=== PATIENT | male | born 1980 | race Caucasian/White ===

== ENCOUNTER → 2018-03-03 | Outpatient (CLI) | payer BC | LOC: COL.RAD 14:30 | DX: H90.42 Sensorineural hearing loss, unilateral, left ear, with unrestricted hearing on the contralateral side (principal); G93.89 Other specified disorders of brain | CPT/HCPCS: A9585 ==

== ENCOUNTER → 2019-09-13 | Outpatient (CLI) | payer BC | LOC: COL.RAD 08:32 | DX: E23.7 Disorder of pituitary gland, unspecified (principal) | CPT/HCPCS: A9585 ==

== ENCOUNTER → 2021-10-20 | Outpatient (CLI) | payer BC | LOC: COL.RAD 07:54 | DX: E23.7 Disorder of pituitary gland, unspecified (principal) | CPT/HCPCS: A9575 ==